=== PATIENT | male | born 1970 | race Caucasian/White ===

== ENCOUNTER 2022-12-16 07:30 | Day surgery (SDC) | payer OTHER, SELFPAY ==
[2022-11-22 08:28] VITALS: BMI 36.6
[2022-12-07 08:44] VITALS: BMI 37.9
--- NOTE | 2022-12-15 11:52 | WPDANESEPPF ---
Anes - Initial Pre Proc Eval Procedure: Operation Date: 12/16/22 09:00 Proposed Procedures p Screening Colonoscopy - Gonzalez Mora MD <Fabio Sanches MD - Last Filed: 12/15/22 11:53> Date/Time: 12/15/22 11:52 <Fabio Sanches MD - Last Filed: 12/15/22 11:53> Surgeon: Gonzalez Mora MD <Fabio Sanches MD - Last Filed: 12/15/22 11:53> Pre Op Diagnosis: Neoplasm Screening <Fabio Sanches MD - Last Filed: 12/15/22 11:53> Patient Data Age: 52 Gender: M Height: 1.88 m Weight: 134 kg <Fabio Sanches MD - Last Filed: 12/15/22 11:53> Allergies Allergy/AdvReac Type Severity Reaction Status Date / Time No Known Allergies Allergy Verified 12/16/22 08:04 <Fabio Sanches MD - Last Filed: 12/15/22 11:53> Home Medications Medication Instructions Recorded Confirmed Type loratadine 10 mg tablet (Claritin) 10 mg PO DAILY 11/10/22 12/16/22 History sodium,potassium,mag sulfates 17.5 See Rx Instructions PO .COMPLEX 11/22/22 12/16/22 Rx gram-3.13 gram-1.6 gram oral soln #354 mL (Suprep Bowel Prep Kit) <Fabio Sanches MD - Last Filed: 12/15/22 11:53> Patient hx anesthesia problems: none <Checo Fisher MD - Last Filed: 12/16/22 08:32> Family hx anesthesia problems: none <Checo Fisher MD - Last Filed: 12/16/22 08:32> Results Review: All pre-operative results and documents have been reviewed as part of the pre-operative evaluation. <Fabio Sanches MD - Last Filed: 12/15/22 11:53> PMFSH Past Medical History Medical History: Medical History Asthma BMI 36.0-36.9,adult Elevated BP without diagnosis of hypertension Encounter to establish care Hypersomnia Multiple joint pain Screening for colon cancer Screening for diabetes mellitus Snoring <Fabio Sanches MD - Last Filed: 12/15/22 11:53> Family History Family History: Family History Father Cancer Grandparent Diabetes mellitus <Fabio Sanches MD - Last Filed: 12/15/22 11:53> Social History Social History: Social History Smoking status: Never smoker Alcohol intake: current Alcohol use details: rarely Substance use: never Substance use type: does not use Lack of Transportation: No Lack of Food: Often True Current Housing: I Have Housing Concerned About Future Housing: No Difficulty Paying Gas/Electric Bills: No Difficulty Paying for Meds: No Currently Unemployed: No Education: Decline to Answer Difficulty w/ Childcare or Family Care: No Living arrangements: with family Spiritual care concerns: No <Fabio Sanches MD - Last Filed: 12/15/22 11:53> Anes - Eval Final PreProcedure Day of Procedure 12/15/22 11:52 <Fabio Sanches MD - Last Filed: 12/15/22 11:53> Patient weight: obese <Fabio Sanches MD - Last Filed: 12/15/22 11:53> Heart: regular rate and rhythm <Fabio Sanches MD - Last Filed: 12/15/22 11:53> Lungs: clear to auscultation and normal air movement <Fabio Sanches MD - Last Filed: 12/15/22 11:53> Airway: Mallampati scale class II <Fabio Sanches MD - Last Filed: 12/15/22 11:53> Neurological: alert and oriented <Fabio Sanches MD - Last Filed: 12/15/22 11:53> Last oral intake: >/= 8 hours <Fabio Sanches MD - Last Filed: 12/15/22 11:53> ASA classification: II <Fabio Sanches MD - Last Filed: 12/15/22 11:53> Emergent: no <Fabio Sanches MD - Last Filed: 12/15/22 11:53> Anesthetic plan: proceed <Fabio Sanches MD - Last Filed: 12/15/22 11:53> Anesthesia type and monitoring: general GIVS <Fabio Sanches MD - Last Filed: 12/15/22 11:53> Results Review: All pre-operative results and documents have been reviewed as part of the pr
[2022-12-16 08:08] VITALS: BP 148/98; PULSE 52; RESP 20; TEMP 36.3; O2SAT 100
[2022-12-16] MEDS: LACTATED RINGERS 1,000 ML 150 ML IV CONT (08:13)
--- NOTE | 2022-12-16 08:30 | PM.HPGS ---
History of Present Illness History of Present Illness Consent: Risks, benefits, and alternatives have been discussed and questions answered. Patient agrees to proceed with procedure. Chief complaint: Neoplasm Screening Narrative: Derik Dill is a 52 year old male Presents for screening colonoscopy. Patient's current weight appetite and bowel movements are normal. Patient denies abdominal pain. He has had no bleeding. Family history is noncontributory. Patient appears be at average risk for colon polyps. Review of Systems Review of Systems: Review of systems noncontributory. [facility] Past Medical History Medical History (Updated 10/07/22 @ 14:36 by Emily Landaverde NP) Asthma BMI 36.0-36.9,adult Elevated BP without diagnosis of hypertension Encounter to establish care Hypersomnia Multiple joint pain Screening for colon cancer Screening for diabetes mellitus Snoring Family History Family History (Updated 10/07/22 @ 09:01 by Carolina Warren MA) Father Cancer Grandparent Diabetes mellitus Social History Social History Smoking status: Never smoker Alcohol intake: current Alcohol use details: rarely Substance use: never Substance use type: does not use Lack of Transportation: No Lack of Food: Often True Current Housing: I Have Housing Concerned About Future Housing: No Difficulty Paying Gas/Electric Bills: No Difficulty Paying for Meds: No Currently Unemployed: No Education: Decline to Answer Difficulty w/ Childcare or Family Care: No Living arrangements: with family Spiritual care concerns: No Meds Home Medications and Allergies Home Medications Medication Instructions Recorded Confirmed Type loratadine 10 mg tablet (Claritin) 10 mg PO DAILY 11/10/22 12/16/22 History sodium,potassium,mag sulfates 17.5 See Rx Instructions PO .COMPLEX 11/22/22 12/16/22 Rx gram-3.13 gram-1.6 gram oral soln #354 mL (Suprep Bowel Prep Kit) Allergies Allergy/AdvReac Type Severity Reaction Status Date / Time No Known Allergies Allergy Verified 12/16/22 08:04 Vital Signs Vital Signs - 24 hr 12/16/22 08:08 Temperature 97.4 F L Pulse Rate 52 L Respiratory Rate 20 Blood Pressure 148/98 H Pulse Oximetry 100 Oxygen Delivery Room Air Exam Narrative: Physical exam reveals patient be alert. Vital signs stable. HEENT exam is unremarkable. Patient is anicteric. Lungs are clear to auscultation and percussion. Heart is without murmur or extra sounds. Abdomen bowel sounds are present soft nontender with no organomegaly. Digital external rectal exam is normal. Assessment and Plan Assessment and plan (1) Screening for colon cancer: Code(s): Z12.11 - Encounter for screening for malignant neoplasm of colon Status: Acute Assessment and Plan: Patient presents for screening colonoscopy. He appears to be at average risk for colon polyps. Further recommendations may be given after endoscopy.
[2022-12-16] MEDS: SIMETHICONE ORAL SUSPENSION 20 MG/0.3 ML 30 ML BOTTLE 0.6 ML IRRIGATION (09:07)
[2022-12-16 09:13] VITALS: BP 127/75; PULSE 55; RESP 16; O2SAT 98
[2022-12-16 09:23] VITALS: BP 126/95; PULSE 50; RESP 16; O2SAT 100
[2022-12-16 09:33] VITALS: BP 135/78; PULSE 48; RESP 16; O2SAT 100
--- NOTE | 2022-12-16 09:43 | WPDANESPN ---
Anes - Prog Note Post-Op Date/Time: 12/16/22 09:43 Cardiovascular status: normal Respiratory status: normal Airway patency: baseline Mental status: baseline Post-Op hydration status: normal Vital Signs: Last Vital Signs Temp 36.3 C L 12/16/22 08:08 Pulse 48 L 12/16/22 09:33 Resp 16 12/16/22 09:33 BP 135/78 12/16/22 09:33 Pulse Ox 100 12/16/22 09:33 O2 Del Method Room Air 12/16/22 09:33 Pain Score (VAS): 0/10 I/O: Intake & Output 12/15/22 12/16/22 12/16/22 23:59 07:59 15:59 Intake Total 400 Balance 400 Patient Feedback: Patient satisfied with anesthetic care.
== END 2022-12-16 09:46 | disposition home or self-care (01) ==
PROVIDERS: PCP Nurse Practitioner Family; Visit Provider Internal Medicine Gastroenterology
PROC: 0DJD8ZZ Inspection of Lower Intestinal Tract, Via Natural or Artificial Opening Endoscopic (ICD-10-PCS; CPT 45378; principal; 2022-12-16 09:00)
DX: Z12.11 Encounter for screening for malignant neoplasm of colon (principal)
CPT/HCPCS: 45378